=== PATIENT | male | born 1985 | race Two or more races ===

== ENCOUNTER 2018-09-13 15:22 | Emergency (ER) | payer OTHER ==
[~2018-09-13] VITALS: Ht 165.1 cm; Wt 64.0 kg
[2018-09-13 15:26] VITALS: BP 136/98; Ht 165.1 cm; Wt 64.0 kg
== END 2018-09-13 17:04 | disposition home or self-care (01) ==
LOC: ED 15:22
DX: M79.652 Pain in left thigh (principal); M79.651 Pain in right thigh; R09.81 Nasal congestion

== ENCOUNTER 2018-10-04 09:41 | Emergency (ER) | payer OTHER ==
[~2018-10-04] VITALS: Ht 165.1 cm; Wt 63.6 kg
[2018-10-04 09:48] VITALS: Ht 165.1 cm; Wt 63.6 kg
[2018-10-04 11:44] VITALS: BP 117/82
== END 2018-10-04 11:44 | disposition home or self-care (01) ==
LOC: ED 09:41
DX: H16.293 Other keratoconjunctivitis, bilateral (principal); S05.01XA Injury of conjunctiva and corneal abrasion without foreign body, right eye, initial encounter; X58.XXXA Exposure to other specified factors, initial encounter; Y93.89 Activity, other specified; Y92.89 Other specified places as the place of occurrence of the external cause; Y99.8 Other external cause status

== ENCOUNTER → 2019-01-11 | Outpatient (CLI) | payer OTHER ==
[2019-01-12 07:56] LABS: BASOPHIL % 0.5 % (0-2); PLATELET COUNT 241 x10^3mcL (130-400); RED CELL DISTRIBUTION WIDTH 12.7 % (11.5-14.5)
[2019-01-12 08:33] LABS: ALBUMIN 3.5 g/dL (3.4-5.0); ALKALINE PHOSPHATASE 91 U/L (46-116); ALT/SGPT 46 U/L (16-63); AST/SGOT 29 U/L (15-37); BILIRUBIN TOTAL 0.5 mg/dL (0.20-1.00); CALCIUM 8.9 mg/dL (8.5-10.1); CARBON DIOXIDE 28.9 mmol/L (21-32); CHLORIDE SERUM 102 mmol/L (98-107); CHOLESTEROL 174 mg/dL (<200); CHOLESTEROL/HDL RATIO 4.4; GFR1 > 60 mL/min; GLUCOSE SERUM 100 mg/dL (74-106); HDL CHOLESTEROL 40 mg/dL (40-60); POTASSIUM SERUM 4.8 mmol/L (3.5-5.1); SODIUM SERUM 135 mmol/L (136-145); TOTAL PROTEIN, SERUM 7.9 g/dL (6.4-8.2); TRIGLYCERIDES 77 mg/dL (<150)
[2019-01-12 10:07] LABS: ERYTHROCYTE SED RATE 15 mm/hr (0-15)
[2019-01-13 09:48] LABS: RAPID PLASMA REAGIN Non Reactive (Non Reactive)
== END | disposition home or self-care (01) ==
LOC: RD 13:01
PROVIDERS: Ophthalmology
DX: H20.9 Unspecified iridocyclitis (principal)
CPT/HCPCS: 86592